=== PATIENT | male | born 1980 | race Two or more races ===

== ENCOUNTER 2023-07-22 00:54 | Emergency (ER) | payer SELFPAY | END 2023-07-22 02:34 | disposition home or self-care (01) | LOC: ER 00:56 | DX: Z00.00 Encounter for general adult medical examination without abnormal findings (principal); Z53.21 Procedure and treatment not carried out due to patient leaving prior to being seen by health care provider ==

== ENCOUNTER 2024-04-30 13:31 | Emergency (ER) | payer OTHER ==
[~2024-04-30] VITALS: Ht 182.9 cm; Wt 136.1 kg
[2024-04-30 13:43] VITALS: BP 171/105; TEMP 98.4
[2024-04-30] MEDS ORDERED: CEPHALEXIN MONOHYDRATE 500 MG CAPSULE PO ONE ×2 (14:33→14:34)
[2024-04-30] MEDS: CEPHALEXIN MONOHYDRATE 500 MG CAPSULE PO ONE (14:36)
[2024-04-30] MEDS ORDERED: CEPH500C2 PO (14:44)
[2024-04-30 15:00] VITALS: O2SAT 100
== END 2024-04-30 15:01 | disposition home or self-care (01) ==
LOC: ER 14:00
DX: L03.113 Cellulitis of right upper limb (principal); I10 Essential (primary) hypertension